=== PATIENT | female | born 1980 | race Caucasian/White ===

== ENCOUNTER 2021-03-31 16:02 | Outpatient (CLI) | payer OTHER | END 2021-03-31 16:44 | disposition home or self-care (01) | LOC: RAD 16:02 | PROVIDERS: ATTEND Internal Medicine Hematology & Oncology | DX: M25.532 Pain in left wrist (principal); M25.531 Pain in right wrist; M79.642 Pain in left hand; M79.641 Pain in right hand; M05.8A Other rheumatoid arthritis with rheumatoid factor of other specified site; M32.8 Other forms of systemic lupus erythematosus ==